=== PATIENT | male | born 1960 | race Caucasian/White ===

== ENCOUNTER 2023-08-28 19:48 | Emergency (ER) | payer BC ==
[~2023-08-28] VITALS: Ht 182.9 cm; Wt 99.8 kg
[2023-08-28 20:07] VITALS: TEMP 98
[2023-08-28] MEDS ORDERED: MAG HYDROX/AL HYDROX/SIMETH 30 ML UDC ONE (20:44)
[2023-08-28] MEDS: MAG HYDROX/AL HYDROX/SIMETH 30 ML UDC PO ONE (20:45)
[2023-08-28 20:49] VITALS: BP 139/71; O2SAT 97
== END 2023-08-28 22:50 | disposition home or self-care (01) ==
LOC: ER 19:59
DX: R09.89 Other specified symptoms and signs involving the circulatory and respiratory systems (principal); I10 Essential (primary) hypertension